=== PATIENT | female | born 1970 | race Caucasian/White ===

== ENCOUNTER 2024-04-07 17:49 | Emergency (ER) | payer BC, SELFPAY ==
[2024-04-07 17:54] VITALS: BP 140/64
--- NOTE | 2024-04-07 19:00 | ED.SKININJ ---
HPI-Injury
General
Chief Complaint: BURN-MINOR
Source: patient
Time Seen by Provider: 04/07/24 18:48
Nursing documentation reviewed up to this point in time: agreed with
History of Present Illness-Injury
Initial Injury comments:
54 yo female w hx of ulcerative colitis on monthly infusions of Remicaide, put her right hand palm on hot exhaust element of a powerhouse tender at home at 11 a.m. has had burn and pain since.
Past History
Past History
ED Past Medical History: Other (Ulcerative colitis, diverticulitis, on Remicaide infusions monthly)
ED Past Surgical History: Other (Tubal ligation)
Social History
Tobacco: Smoker
Alcohol: Daily
Drug: None
Personal:
Review of Systems
Review of Systems
Allergies reviewed?: Yes
All Other Systems: ROS reviewed and negative except as documented in HPI and ROS
Constitutional: Denies fever
Skin: Reports other (burn right hand palm)
Neurological: Denies numbness
Skin Exam
Burn
Right Palmar Hand:
Degree of burn: second
Skin has: intact blisters (there is one dime sized flat blister hypothenar eminence, rest of skin of palm is flat and wrinkled from immersion in water over past few hours. )
Size/distribution of burn in cms: only on palm, no fingers involved
Phy Exam
Physical Exam
Physical Exam:
PHYSICAL EXAMINATION:
General: no apparent distress, not acutely ill
Neuro: alert and oriented.
Psychiatric: well kept. interactive and cooperative
Musculoskeletal: Moves with ease
Skin: Warm, pink.
Course
Orders/Labs/Results
Orders:
Orders
04/07/24 18:59
Hydrocodone 5/APAP 325 [[place] 5/325] 1 tablet PO NOW STA
Vital Signs
Initial and Last Documented VS:
Initial Vital Signs
Temp Pulse Resp BP Pulse Ox
98.3 F 91 20 140/64 98
04/07/24 17:54 04/07/24 17:54 04/07/24 17:54 04/07/24 17:54 04/07/24 17:54
Last Documented Vital Signs
Temp Pulse Resp BP Pulse Ox
98.3 F 91 20 140/64 98
04/07/24 17:54 04/07/24 17:54 04/07/24 17:54 04/07/24 17:54 04/07/24 17:54
MDM/Problems Addressed
MDM/Problems Addressed:
54 yo female w hx of ulcerative colitis on monthly infusions of Remicaide, put her right hand palm on hot exhaust element of a powerhouse tender at home at 11 a.m. has had burn and pain since.
Skin intact, one small flat blister. No circumferential blanco, fingers not involved.
No broken skin
Rx for pain med sent to her pharmacy
*Critical Care Note
Total Time (30-74mins, 75-104mins- exclusive of procedures): Not Applicable
ED Attending Note
-
Portions of this chart may have been created with voice recognition software.� Occasional wrong word or��sound alike� substitutions may have occurred due to the inherent limitations of voice recognition software.
Discharge Plan
Departure
Patient Disposition: Home (Routine Discharge)
Date of Disposition: 04/07/24
Time of Disposition: 19:03
Patient with high blood pressure during this ER visit?: No
Condition: Good
Discharge Problem:
Burn of hand, right, second degree
Instructions: Skin Blanco (DC)
Prescriptions:
New
hydrocodone-acetaminophen 5-325 mg tablet
1 tab PO Q8H PRN (Reason: Pain) Qty: 5 0RF
No Action
prednisone 10 MG tablet
15 mg PO DAILY
infliximab [Remicade] 100 MG/10 ML recon soln
500 mg IV MONTHLY
bupropion HCl 75 MG tablet
150 mg PO DAILY
Patient Comments:
pt unsure of dosage
Activity Restrictions/Additional Instructions:
As we discussed, I sent a prescription to your pharmacy for pain medication [place] or hydrocodone.
Ibuprofen 600 mg every 6 hours as needed for pain
Keeping the hand elevated slightly higher than your heart will help minimize throbbing pains
Wash the wound daily with soap and water, if the blisters break apply antibiotic ointment to the broken areas after washing and drying, then apply the non stick dressings and gauze wrap (if needed)
Cool compresses for pain.
Interventions
Interventions:
*Risk Screen - Suicide Last Done: 04/07/24 17:54
*General Assessment Last Done: 04/07/24 17:54
*Neglect/Abuse Screening Last Done: 04/07/24 17:54
ED- Fall Risk Assessment Last Done: 04/07/24 19:15
*ED COVID-19 Vaccine History Last Done: 04/07/24 19:15
*Nursing Disposition Last Done: 04/07/24 19:15
ED-Skin Assessment Last Done: 04/07/24 19:15
Discharge Date and Time
Discharge Date/Time: 04/07/24 19:15
Print Language: LITHUANIAN
[2024-04-07] MEDS: NORCO 5/325 1 TABLET PO (19:10)
== END 2024-04-07 19:15 | disposition home or self-care (01) ==
LOC: EMR 17:49
PROVIDERS: EMERGENCY PHYSICIAN Emergency Medicine; FAMILY PHYSICIAN Family Medicine
DX: T23.201A Burn of second degree of right hand, unspecified site, initial encounter (principal); X17.XXXA Contact with hot engines, machinery and tools, initial encounter; K51.90 Ulcerative colitis, unspecified, without complications
CPT/HCPCS: 99282